=== PATIENT | female | born 1945 | race Caucasian/White ===

== ENCOUNTER → 2016-12-01 | Outpatient (CLI) | payer OTHER ==
[~2016-12-01] MED LIST: INSU3INJ3 SQ; LEVO112T4 PO; METF-384 PO; PRAV20TA PO; REPA2TAB12 PO; VALS160T60 PO; VERA240T20 PO
--- NOTE | 2016-12-01 14:43 | MAMMOGRAPHY REPORT ---
BILATERAL DIGITAL SCREENING MAMMOGRAM WITH CAD: 12/01/2016 CLINICAL HISTORY: Routine screening. Patient has no complaints. TECHNIQUE: Bilateral CC and MLO views were obtained. Current study was also evaluated with a Compute r Aided Detection (CAD) system. COMPARISON: Comparison is made to exams dated: 11/29/2015 mammogram - [facility], mammogram, and 09/30/2013 mammogram. BREAST COMPOSITION: The tissue of both breasts is almost entirely fatty. FINDINGS: There are scattered benign rim calcifications and minimal vascular calcifications in the br easts. No new suspicious mass, architectural distortion or cluster of microcalcifications is seen. IMPRESSION: ACR BI-RADS CATEGORY 1: NEGATIVE There is no mammographic evidence of malignancy. A 1 year screening mammogram is recommended. The pa tient will receive written notification of the results. Approximately 10% of breast cancers are not detected with mammography. A negative mammographic report should not delay biopsy if a clinically suggestive mass is present. Morenita Nielsen M.D. ay/:12/01/2016 13:41:05 Pharmacy Benefit Manager: Eliza RIVAS(R)(M), [facility] letter sent: Normal 1/2 BI-RADS Code: ACR BI-RADS Category 1: Negative
== END | disposition home or self-care (01) ==
LOC: C.MAMM 10:38
PROVIDERS: ATTEND Family Medicine
DX: Z12.31 Encounter for screening mammogram for malignant neoplasm of breast (principal)

== ENCOUNTER 2017-02-24 13:25 | Emergency (ER) | payer OTHER ==
[~2017-02-24] VITALS: Ht 162.6 cm; Wt 101.0 kg
[2017-02-24 13:28] VITALS: TEMP 36.8; Ht 162.6 cm; Wt 101.0 kg
[2017-02-24 14:27] LABS: BASO % 0.5 %; BASO ABS # 0.03 K/uL (0-0.2); COMPLETE YES; EOS % 3.4 %; HEMATOCRIT 38.5 % (37-47); IG% 0.3 %; LYMPH ABS # 1.89 K/uL (1.2-3.4); MEAN CELL VOLUME 92.1 fL (80-100); MEAN CORPUSCULAR HEMOGLOBIN 31.8 pg (25-34); MEAN CORPUSCULAR HGB CONC 34.5 g/dl (32-36); MEAN PLATELET VOLUME 9.8 fL (7.4-10.4); MONO % 7.7 %; NEUT % 59.1 %; PLATELET COUNT 271 K/uL (130-400); RED BLOOD COUNT 4.18 M/uL (4.2-5.4); WHITE BLOOD COUNT 6.52 K/uL (4.8-10.8)
[2017-02-24 14:31] LABS: URINE APPEARANCE CLEAR (CLEAR); URINE BILIRUBIN NEG (NEG); URINE COLOR YELLOW; URINE NITRITE NEG (NEG); URINE SPECIFIC GRAVITY 1.029 (1.000-1.030); UROBILINOGEN NEG (NEG)
[2017-02-24 14:33] LABS: MANUAL MICROSCOPIC REQUIRED? NO; REVIEW REQ? NO
[2017-02-24 14:39] LABS: BUN/CREATININE RATIO 16.7 (10-20); CALCIUM 9.3 mg/dl (8.5-10.1); CREATININE 1.1 mg/dl (0.60-1.20); POTASSIUM 4.3 mmol/L (3.5-5.1)
[2017-02-24] MEDS ORDERED: VERA240T20 PO (15:17)
[2017-02-24] MEDS ORDERED: LEVO112T4 PO (15:17)
[2017-02-24] MEDS ORDERED: METF-384 PO (15:17)
[2017-02-24] MEDS ORDERED: REPA2TAB13 PO (15:17)
[2017-02-24] MEDS ORDERED: VALS160T60 PO (15:17)
[2017-02-24] MEDS ORDERED: PRAV20TA PO (15:17)
[2017-02-24] MEDS ORDERED: INSU3INJ3 SQ ×2 (15:17)
[2017-02-24 15:59] VITALS: BP 150/92; PULSE 81; O2SAT 97
[2017-02-24 16:10] LABS: LYME DISEASE AB IGG NEG (NEG)
[2017-02-24 16:11] LABS: LYME DISEASE AB IGM NEG (NEG)
--- NOTE | 2017-02-24 16:12 | EMERGENCY ROOM VISIT NOTE ---
ED Visit Note First contact with patient: 13:37 This Patient was discussed with the physician assistant surveyor, Eugene Howard PA-C. The pertinent historical and physical exam findings were confirmed. I agree with the studies ordered and with the interpretations of these studies. I agree with the disposition and care plan.
--- NOTE | 2017-02-24 23:29 | EMERGENCY ROOM VISIT NOTE ---
ED Visit Note First contact with patient: 13:37 Chief Complaint: I have a headache and my left temporal area since yesterday. History of Present Illness: Ms. gonsales is a 71-year-old white female who ambulates into the ED complaining of left temporal pain. Historically patient denies any significant related medical conditions or trauma. Patient reports shortly after waking yesterday morning she developed an acute onset of pain in the left temporal area. She reports it was severe, self- limiting and lasted approximately 20-30 seconds and self resolved. She was not able to describe her pain except for her severe. Then throughout the day she reports she intermittently had return of pain but not as severe. She did use ibuprofen and Aleve with she felt was helping her discomfort. She was able to sleep all night and when she woke this morning the same symptoms started occurring but once again was decreased in intensity. She contacted her PCP who encouraged her to come to the ED for further evaluation and care. She reports her pain was more achy this morning. The pain was located in the left temporal area with radiation into the orbit. Currently she is pain free but does report her pain this morning was as high as 4/10. She has not taken any additional medications today for her discomfort. She has not identified any aggravating or alleviating factors related to the pain. She denies any associated symptoms including fevers, chills, sweats, skin eruptions, skin color changes, recent trauma, lightheadedness, dizziness, visual changes, hearing changes, difficulty speaking, difficulty swallowing, upper respiratory tract symptoms, sinus congestion, nasal drainage, cough, wheezing, shortness of breath, chest pain, decreased appetite. Review of Systems: As noted above in history of present illness. 8 body systems were reviewed and found to be negative as noted above. Past Medical History: Diabetes, hypertension, asthma, bronchitis, pneumonia, status post tonsillectomy and cholecystectomy. Current Medications: Medications Dose Route/Sig Max Daily Dose Days Date Category Dose Instructions Levemir Flextouch (Insulin Detemir) 100 Unit/Ml Inj 66 Units SQ PM 02/24/17 Reported Levemir Flextouch (Insulin Detemir) 100 Unit/Ml Inj 70 Units SQ QAM 02/24/17 Reported Prandin (Repaglinide) 2 Mg Tab 2 Mg PO AC 02/24/17 Reported Levothyroxine Sodium 112 Mcg Tab 1 Tab PO UD 02/24/17 Reported WEDNESDAY,WEDNESDAY, WEDNESDAY, WEDNESDAY, Levothyroxine Sodium 112 Mcg Tab 2 Tab PO UD 02/24/17 Reported WEDNESDAY AND Calan Sr Ext Rel (Verapamil HCl) 240 Mg Tabcr 240 Mg PO QAM 02/24/17 Reported Pravachol (Pravastatin Sodium) 20 Mg Tab 80 Mg PO HS 02/24/17 Reported Diovan Hct 160MG/25MG (HCTZ/Valsartan) 1 Tab Tab 1 Tab PO QAM 02/24/17 Reported Glucophage (Metformin Hcl) 1,000 Mg Tab 1,000 Mg PO BID 02/24/17 Reported Allergies to Medications: Patient denies. Social History: Patient is not employed; she lives by herself and feels safe in her home environment; she denies tobacco use and admits to social alcohol use. Physical Examination: Vital Signs: Date Time Temp Pulse Resp B/P (MAP) Pulse Ox O2 Delivery O2 Flow Rate FiO2 02/24/17 15:59 81 20 150/92 97 Room Air 02/24/17 13:28 36.8 98 3 159/84 98 Room Air GENERAL: 71-year-old female in no acute distress, nontoxic-appearing, afebrile and hemodynamically stable. NEUROLOGICAL: Awake, alert and oriented to person, place and time. Answering questions appropriately and following commands. Normal gait. Good hand eye coordination. No focal motor or sensory deficits. Cranial nerves II through XII grossly intact. SKIN: Warm, dry and pink. No soft tissue eruptions or trauma noted. HEENT: Atraumatic and normocephalic. Mild tenderness in the left temporal area without palpable cords. There is no skin color changes or eruptions. No tenderness or erythema over the frontal or maxillary sinuses. External ears are nontender. Auditory canals are pink and pain. Tympanic membranes are normal appearing with normal light reflex. PERRLA. EOMI without nystagmus. No light sensitivity. Sclera white and conjunctiva pink. No drainage from naris. Oral cavity moist and pink. Pharynx is nonerythematous or edematous. Speech normal. No lymphadenopathy. Trachea midline. No jugular venous distention. Carotid bruits. BACK: No tenderness over the bony spine. No CVA tenderness. THORAX: Lungs sounds are clear to auscultation and equal bilaterally with symmetrical chest wall. HEART: Regular rate and rhythm. No gallops, rubs or murmurs are appreciated. ABDOMEN: Flat, soft and nontender. Positive bowel sounds in all quadrants. EXTREMITIES: Moves all extremities well on command and with purpose. ED Course: Patient is assessed as noted above. Patient's medication list was reviewed. Laboratory Testing: Test 02/24/17 14:10 Range/Units White Blood Count 6.52 4.8-10.8 K/uL Red Blood Count 4.18 4.2-5.4 M/uL Hemoglobin 13.3 12.0-16.0 g/dL Hematocrit 38.5 37-47 % Mean Corpuscular Volume 92.1 80-100 fL Mean Corpuscular Hemoglobin 31.8 25-34 pg Mean Corpuscular Hemoglobin Concent 34.5 32-36 g/dl Platelet Count 271 130-400 K/uL Mean Platelet Volume 9.8 7.4-10.4 fL Neutrophils (%) (Auto) 59.1 % Lymphocytes (%) (Auto) 29.0 % Monocytes (%) (Auto) 7.7 % Eosinophils (%) (Auto) 3.4 % Basophils (%) (Auto) 0.5 % Neutrophils # (Auto) 3.86 1.4-6.5 K/uL Lymphocytes # (Auto) 1.89 1.2-3.4 K/uL Monocytes # (Auto) 0.50 0.11-0.59 K/uL Eosinophils # (Auto) 0.22 0-0.5 K/uL Basophils # (Auto) 0.03 0-0.2 K/uL RDW Standard Deviation 43.4 36.4-46.3 fL RDW Coefficient of Variation 13.0 11.5-14.5 % Immature Granulocyte % (Auto) 0.3 % Immature Granulocyte # (Auto) 0.02 0.00-0.02 K/uL Erythrocyte Sedimentation Rate 14 0-21 mm/hr Urine Color YELLOW Urine Appearance CLEAR CLEAR Urine pH 5.0 4.5-7.5 Urine Specific [place] 1.029 1.000-1.030 Urine Protein NEG NEG Urine Glucose (UA) 3+ NEG Urine Ketones TRACE NEG Urine Occult Blood NEG NEG Urine Nitrite NEG NEG Urine Bilirubin NEG NEG Urine Urobilinogen NEG NEG Urine Leukocyte Esterase NEG NEG Sodium Level 137 136-145 mmol/L Potassium Level 4.3 3.5-5.1 mmol/L Chloride Level 105 98-107 mmol/L Carbon Dioxide Level 23 21-32 mmol/L Anion Gap 9.0 3-11 mmol/L Blood Urea Nitrogen 18 7-18 mg/dl Creatinine 1.10 0.60-1.20 mg/dl Est Creatinine Clear Calc Drug Dose 55.8 ml/min Estimated GFR () 59.3 Estimated GFR (Non- 51.2 BUN/Creatinine Ratio 16.7 10-20 Random Glucose 300 70-99 mg/dl Calcium Level 9.3 8.5-10.1 mg/dl Lyme Disease IgG Antibody NEG NEG Lyme Disease IgM Antibody NEG NEG Patient was offered pain medication and refused. Patient was reassessed multiple times during her stay in the emergency department. Patient's case was reviewed with Dr. Hein; in apparently assessed the patient we agreed on diagnostic approach, treatment, disposition and plan. Patient was educated about today's findings and instructed on her treatment plan ; she verbalized understanding and agreement with this plan. Clinical Impression: Left temporal head pain. Decision-Making: Initially my differential diagnosis I considered early herpes zoster, temporal arteritis, CVA, scalp contusion, otitis externa, sinusitis and other causes. Disposition: Patient discharged home in stable condition; prior to departure she was reassessed and subjectively reported she was pain and symptom-free. Plan: Patient was encouraged to continue her current medications as prescribed. Patient is encouraged to alternate ibuprofen and acetaminophen as needed for pain every 3 hours. Patient was encouraged to inspect her face for any development of rashes. Patient was encouraged to follow-up with PCP or return to the ED for any rashes , worsening pain, fevers or any new/concerning symptoms.
== END 2017-02-24 16:25 | disposition home or self-care (01) ==
LOC: C.EDB 13:26 → C.EDA 16:25
DX: R51 Headache (principal); E11.9 Type 2 diabetes mellitus without complications; I10 Essential (primary) hypertension; J45.909 Unspecified asthma, uncomplicated; Z79.4 Long term (current) use of insulin; Z79.899 Other long term (current) drug therapy